=== PATIENT | female | born 1980 | race Caucasian/White ===

== ENCOUNTER → 2017-02-25 | Outpatient (CLI) | payer OTHER ==
--- NOTE | 2017-02-25 09:10 | RAD ---
Right knee, four views Indication: Knee pain Comparison: None Findings: No acute fracture or subluxation is identified. There is minimal narrowing and tiny osteop hyte formation of the lateral patellofemoral compartment. The femorotibial joint spaces are well vipin ntained. There is no appreciable joint effusion. Soft tissues are unremarkable. Impression: Minimal degenerative changes of the lateral patellofemoral compartment. Reported By:
== END | disposition home or self-care (01) | DRG 556 ==
LOC: RAD 08:23
PROVIDERS: ATTEND Specialist
DX: M25.561 Pain in right knee (principal); M17.11 Unilateral primary osteoarthritis, right knee
CPT/HCPCS: 73564